=== PATIENT | female | born 1935 | race Caucasian/White ===

== ENCOUNTER 2020-08-14 13:24 | Observation (INO) | payer MEDICARE ==
[2020-08-14] MEDS ORDERED: fentaNYL (PF) 50 MCG/ML 2 ML AMP IV PRN (13:50)
[2020-08-14] MEDS ORDERED: LIDOCAINE 1% (10MG/ML) FOR IV START INTRADERMA PRN (13:50)
[2020-08-14] MEDS ORDERED: ONDANSETRON 4 MG/2 ML VIAL IVP PRN ×2 (13:50→15:31)
[2020-08-14] MEDS: LACTATED RINGERS 1,000 ML IV SCH (13:56)
[2020-08-14 14:04] LABS: Glucose,Whole Blood 98 mg/dL (75-99)
[2020-08-14] MEDS ORDERED: HYDROmorphone 0.2 MG/1 ML SYRINGE IVP PRN (15:31)
[2020-08-14] MEDS ORDERED: HYDROmorphone 0.5 MG/0.5 ML SYRINGE IVP PRN (15:31)
[2020-08-14] MEDS ORDERED: traMADol 50 MG TAB PO PRN (15:34)
[2020-08-14] MEDS ORDERED: PROPOFOL 10 MG/ML 20 ML VIAL IV ONE (15:50)
[2020-08-14] MEDS ORDERED: SUCCINYLCHOLINE CHLORIDE 100 MG/5 ML SYR IV ONE (15:50)
[2020-08-14] MEDS ORDERED: fentaNYL (PF) 50 MCG/ML 2 ML AMP ONE (15:50)
[2020-08-14] MEDS ORDERED: LIDOCAINE 1% INJ 10MG/ML (20 ML MDV) ONE (15:50)
--- NOTE | 2020-08-14 16:30 | P.OP ---
Date of Procedure: 08/14/20 Preoperative Diagnosis: Wound dehiscence with exposed hardware status post ORIF right olecranon Postoperative Diagnosis: Wound dehiscence with exposed hardware status post ORIF right olecranon Procedure(s) Performed: 1. Removal hardware right olecranon 2. Irrigation debridement wound dehiscence right elbow 3. Delayed primary closure right elbow Anesthesia: PAMELA Surgeon: Shailesh Delgado Film Crew Member #1: Kayleigh Monroy Estimated Blood Loss (ml): 10 Pathology: other (Cultures 2) Condition: stable Disposition: PACU Indications for Procedure: This is an 85-year-old female that had an open reduction internal fixation of her right olecranon proximally 10 days ago. She presented for a postoperative check was found to have an open area at the tip of her olecranon with exposed hardware. Her surgery was delayed secondary to her poor skin quality. After discussing the surgical nonsurgical treatment options with her and her family at length, I recommended removal of hardware with irrigation debridement and delayed primary closure. informed consent was obtained. Operative Findings: The operative findings are consistent with exposed hardware of the right olecranon status post open reduction and internal fixation Description of Procedure: Patient was seen in the preoperative area, the consent was reviewed, and the operative site was marked with a skin marker. Patient was then brought to the operating room and given a general anesthetic by the anesthesia department. 2 g of Ancef were given intravenously. Tourniquet was placed on the right upper arm the right upper extremities prepped and draped in usual sterile fashion. The wound was then inspected and the olecranon plate was readily visible through the wound. There was a moderate to large amount purulent discharge from the wound. Cultures were obtained 2. The prior surgical incision was healed well and the sutures were removed from that. Through the dehisced wound and a small portion of the prior incision which was opened sharply, the plate and screws were easily removed with appropriate screwdriver. There area was then irrigated and closed with 2-0 Vicryl suture. Sterile dressing was applied, patient was placed in a posterior splint, and transferred recovery room stable condition. Asst. Kayleigh Monroy was required due to complexity of surgery the need for skilled pediatric dental assistant.
[2020-08-14] MEDS: HYDROmorphone 0.5 MG/0.5 ML SYRINGE IVP PRN ×5 (17:05→20:04)
[2020-08-14] MEDS ORDERED: LACTATED RINGERS 1,000 ML IV ONE (17:21)
[2020-08-14] MEDS: traMADol 50 MG TAB PO PRN (20:03)
[2020-08-14] MEDS: SODIUM CHLORIDE 0.9% 1,000 ML IV SCH (20:11)
[2020-08-14] MEDS: SENNOSIDES-DOCUSATE SODIUM 1 EACH TAB PO PRN (20:12)
[2020-08-14] MEDS ORDERED: ZOLPIDEM 5 MG TAB PO ONE (20:18)
[2020-08-15] MEDS: HYDROmorphone 0.5 MG/0.5 ML SYRINGE IVP PRN ×3 (00:25→12:38)
[2020-08-15] MEDS: traMADol 50 MG TAB PO PRN ×3 (04:38→20:07)
[2020-08-15] MEDS: RIVAROXABAN 15 MG TAB PO SCH (08:52)
[2020-08-15] MEDS: SODIUM CHLORIDE 0.9% 1,000 ML IV SCH (08:53)
[2020-08-15] MEDS: LACTATED RINGERS 1,000 ML IV SCH (08:59)
[2020-08-15 12:06] LABS: Basophils # (A) 0.03 X 10*3/uL (0.00-0.10); Basophils % (A) 0.3 %; Eosinophils # (A) 0.05 X 10*3/uL (0.04-0.35); Eosinophils % (A) 0.6 %; HCT 28.9 % (37.2-46.3); Lymphocytes # (A) 0.85 X 10*3/uL (0.90-5.00); Lymphocytes % (A) 9.5 %; MCH 31.3 pg (27.0-32.0); MCHC 31.1 g/dL (32.0-37.0); MCV 100.3 fL (80.0-97.0); Mean Platelet Volume 11.2 fL (9.5-12.2); Monocytes # (A) 0.65 X 10*3/uL (0.20-1.00); Monocytes % (A) 7.2 %; Neutrophils # (A) 7.21 X 10*3/uL (1.80-7.70); Neutrophils % (A) 80.3 %; Platelet Count 198 X 10*3/uL (140-440); RBC 2.88 X 10*6/uL (4.10-5.20); RDW 17.2 % (11.5-14.5); WBC 8.98 X 10*3/uL (4.50-10.00)
[2020-08-15] MEDS ORDERED: HYDROcodone/APAP 5-325MG 1 EACH TAB PO PRN (12:37)
--- NOTE | 2020-08-15 12:45 | P.PN ---
Subjective Progress Note Date: 08/15/20 Principal diagnosis: Status post hardware removal right elbow This is a 85 year-old female post right elbow hardware removal. This is post-op day 1. The patient was evaluated at the bedside today. The patient denies nausea, vomiting, abdominal pain, shortness of breath, and chest pain this morning. She states her pain is only moderately controlled at this time. The patient has been up to the bathroom with assistance. Objective - Vital Signs Vital signs: Vital Signs Temp 98.2 F 08/15/20 07:52 Pulse 69 08/15/20 07:52 Resp 20 08/15/20 08:45 BP 105/60 08/15/20 07:52 Pulse Ox 92 L 08/15/20 07:52 Intake & Output 08/14/20 08/15/20 08/15/20 18:59 06:59 18:59 Intake Total 1550 Output Total 5 Balance 1545 Weight 51.1 kg Intake: IV 1550 Output: Estimated Blood Loss 5 Other: Voiding Method Toilet Toilet # Voids 2 - Exam The patient does not appear in acute distress. Alert and orientated x3. Splint and dressing is clean dry and intact. Good hand motion without difficulty. Sensation and circulatory status is intact. - Labs CBC & Chem 7: 08/15/20 06:33 Labs: Abnormal Lab Results - Last 24 Hours (Table) 08/15/20 Range/Units 06:33 RBC 2.88 L (4.10-5.20) X 10*6/uL Hgb 9.0 L (12.0-15.0) g/dL Hct 28.9 L (37.2-46.3) % MCV 100.3 H (80.0-97.0) fL MCHC 31.1 L (32.0-37.0) g/dL RDW 17.2 H (11.5-14.5) % Absolute Nucleated RBC 0.02 H (0.00-0.00) X 10*3/uL Immature Gran # 0.19 H (0.00-0.04) X 10*3/uL Lymphocytes # 0.85 L (0.90-5.00) X 10*3/uL NRBC/100 WBC Diff 0.2 H (0.0-0.0) /100 WBCS Microbiology - Last 24 Hours (Table) 08/14/20 16:29 Gram Stain - Preliminary Elbow - Right Wound Culture - Preliminary 08/14/20 16:29 Gram Stain - Preliminary Elbow - Right Wound Culture - Preliminary 08/14/20 16:29 Anaerobic Culture - Preliminary Elbow - Right 08/14/20 16:29 Anaerobic Culture - Preliminary Elbow - Right Assessment and Plan (1) History of elbow surgery Current Visit: Yes Status: Acute Code(s): Z98.890 - OTHER SPECIFIED POSTPROCEDURAL STATES SNOMED Code(s): 628983989 (2) Hypertension Current Visit: Yes Status: Acute Code(s): I10 - ESSENTIAL (PRIMARY) HYPERTENSION SNOMED Code(s): 38981373 (3) Anxiety Current Visit: Yes Status: Acute Code(s): F41.9 - ANXIETY DISORDER, UNSPECIFIED SNOMED Code(s): 36577036 Plan: 1. Continue pain control, may use Ultram or [place] 2. Continue in splint and sling at this time. Encouraged finger motion. 3. Continue ambulation 4. Anticipate discharge home tomorrow.
[2020-08-15] MEDS: clonazePAM 0.5 MG TAB PO SCH ×2 (12:47→20:07)
--- NOTE | 2020-08-15 15:29 | P.CONS ---
History of Present Illness - Reason for Consult Consult date: 08/15/20 Medical management - Chief Complaint Removal of right olecranon hardware - History of Present Illness Patient is a 85-year-old female with a known history of hypertension, hyperlipidemia, paroxysmal atrial fibrillation on anticoagulation with xarelto, history of right shoulder surgery and pacemaker placement was admitted to the hospital due to wound lesions with exposure hardware status post ORIF right. Patient states that she fell initially about 2 weeks ago and seen by her PCP. X-ray showed a right arm fracture. Patient had ORIF right only cranial about a week ago. Patient was admitted to the hospital due to wound lesions. She underwent Removal of right olecranon hardware and debridement of wound dehiscence right elbow. Currently patient is complaining of right arm pain but improved medications. Laboratory data showed WBC 8.98, hemoglobin 9.0 and platelets 198 and MCV 100.3 Review of Systems Constitutional: Patient denies any fever or chills . No generalized weakness or weight loss. Abdomen: Patient denied nausea vomiting and diarrhea and abdominal pain. Cardiovascular: Patient denies any chest pain or short of breath no palpitations. Respiratory: patient denied any cough is from production. No shortness of breath Neurologic: Patient denied any numbness or tingling headache. Musculoskeletal: Patient denies any complaints of joint swelling or deformity. Right elbow pain. Skin: Negative Psychiatric: Negative Endocrine: No heat or cold intolerance. No recent weight gain. Genitourinary: No dysuria or hematuria. All other 14 point ROS negative except the above Past Medical History Past Medical History: Atrial Fibrillation, Hyperlipidemia, Hypertension History of Any Multi-Drug Resistant Organisms: C-DIFF Year Discovered:: CDIFF OVER A YEAR AGO MDRO Source:: STOOL Additional Past Surgical History / Comment(s): RIGHT SHOULDER, PACEMAKER Past Anesthesia/Blood Transfusion Reactions: No Reported Reaction Smoking Status: Never smoker Medications and Allergies Home Medications Medication Instructions Recorded Confirmed Type Enalapril [Vasotec] 20 mg PO DAILY 08/14/20 08/14/20 History Rivaroxaban [Xarelto] 15 mg PO DAILY 08/14/20 08/14/20 History Simvastatin 10 mg PO ONCE 08/14/20 08/14/20 History Zolpidem Tartrate [Ambien] 10 mg PO HS PRN 08/14/20 08/14/20 History buPROPion HCL [buPROPion HCL Xl] 150 mg PO DAILY 08/14/20 08/14/20 History clonazePAM [KlonoPIN] 0.5 mg PO BID 08/14/20 08/14/20 History predniSONE 10 mg PO DAILY 08/14/20 08/14/20 History traMADol HCL 50 mg PO ONCE PRN 08/14/20 08/14/20 History Allergies Allergy/AdvReac Type Severity Reaction Status Date / Time No Known Allergies Allergy Verified 08/14/20 13:49 Physical Exam Vitals: Vital Signs Temp Pulse Pulse Resp BP Pulse Ox 08/15/20 08:45 20 08/15/20 07:52 98.2 F 69 20 105/60 92 L 08/15/20 02:42 98.4 F 71 16 95/53 91 L 08/14/20 20:00 16 08/14/20 19:53 98.1 F 74 16 110/57 96 08/14/20 18:38 98.0 F 75 18 110/57 93 L 08/14/20 18:00 77 16 108/53 100 08/14/20 17:45 69 16 103/56 100 08/14/20 17:30 69 18 117/54 100 08/14/20 17:15 70 16 112/55 99 08/14/20 17:00 73 16 116/55 100 08/14/20 16:45 99 F 78 16 127/57 99 08/14/20 13:48 97.3 F L 82 17 136/60 97 Intake and Output 08/14/20 08/15/20 08/15/20 22:59 06:59 14:59 Intake Total 1450 Output Total 5 Balance 1445 Intake: IV 1450 Output: Estimated Blood Loss 5 Other: Voiding Method Toilet Toilet # Voids 2 Weight 51.1 kg PHYSICAL EXAMINATION: Patient is lying in the bed comfortably, no acute distress, awake alert and be ented.. HEENT: Normocephalic. Neck is supple. Pupils reactive. Nostrils clear. Oral cavity is moist. Neck reveals no JVD, carotid bruits, or thyromegaly. CHEST EXAMINATION: Trachea is central. Symmetrical expansion. Lung [place] clear to auscultation and percussion. CARDIAC: Normal S1, S2 with no gallops. No murmurs ABDOMEN: Soft. Bowel sounds normal. No organomegaly. No abdominal bruits. Extremities: reveal no edema. No clubbing or cyanosis Neurologically awake, alert, oriented x3 with well-coordinated movements. No focal deficits noted Skin: No rash or skin lesions. Psychiatric: Coperative. Nonsuicidal Musculoskeletal: No joint swelling or deformity. Right arm splint is dry and i ntact.. Results CBC & Chem 7: 08/15/20 06:33 Labs: Microbiology - Last 24 Hours (Table) 08/14/20 16:29 Gram Stain - Preliminary Elbow - Right Wound Culture - Preliminary 08/14/20 16:29 Gram Stain - Preliminary Elbow - Right Wound Culture - Preliminary 08/14/20 16:29 Anaerobic Culture - Preliminary Elbow - Right 08/14/20 16:29 Anaerobic Culture - Preliminary Elbow - Right Assessment and Plan Assessment: Status post removal of right olecranon hardware and debridement of wound lesions. Hypertension Paroxysmal atrial fibrillation on and atrial fibrillation with xarelto Macrocytic anemia. Rule out B12 and folate deficiency. DVT prophylaxis recurrent and xarelto next Plan: Patient will be continued on pain management, bowel regimen, incentive spirometry continue with DVT prophylaxis. Encourage ambulation. Follow-up H&H level. We will continue to follow and further recommendations based on the clinical course. thank you for your consult. Time with Patient: Greater than 30
[2020-08-15] MEDS: SENNOSIDES-DOCUSATE SODIUM 1 EACH TAB PO PRN (20:10)
[2020-08-15] MEDS ORDERED: ZOLPIDEM 10 MG TAB PO PRN (20:21)
[2020-08-15] MEDS ORDERED: BENZONATATE 100 MG CAP PO PRN (20:22)
[2020-08-16] MEDS: SODIUM CHLORIDE 0.9% 1,000 ML IV SCH (00:28)
[2020-08-16] MEDS: clonazePAM 0.5 MG TAB PO SCH (07:30)
[2020-08-16] MEDS: RIVAROXABAN 15 MG TAB PO SCH (07:31)
[2020-08-16] MEDS: traMADol 50 MG TAB PO PRN ×2 (07:33→13:56)
[2020-08-16 07:34] VITALS: BP 135/72; PULSE 96; RESP 20; TEMP 98.1
[2020-08-16] MEDS ORDERED: buPROPion XL 150 MG TAB.ER.24H PO SCH (09:00)
[2020-08-16 11:35] LABS: Basophils # (A) 0.03 X 10*3/uL (0.00-0.10); Basophils % (A) 0.4 %; Eosinophils # (A) 0.07 X 10*3/uL (0.04-0.35); Eosinophils % (A) 0.8 %; HCT 27.1 % (37.2-46.3); HGB 8.4 g/dL (12.0-15.0); Lymphocytes # (A) 0.74 X 10*3/uL (0.90-5.00); Lymphocytes % (A) 8.9 %; MCH 30.2 pg (27.0-32.0); MCV 97.5 fL (80.0-97.0); Mean Platelet Volume 10.9 fL (9.5-12.2); Monocytes % (A) 7.2 %; Neutrophils # (A) 6.72 X 10*3/uL (1.80-7.70); Neutrophils % (A) 81.3 %; Platelet Count 185 X 10*3/uL (140-440); RBC 2.78 X 10*6/uL (4.10-5.20); RDW 16.7 % (11.5-14.5); WBC 8.28 X 10*3/uL (4.50-10.00)
--- NOTE | 2020-08-16 11:48 | P.DS ---
Providers Date of admission: 08/15/20 10:08 Expected date of discharge: 08/16/20 Attending physician: Shailesh Delgado Consults: 08/14/20 17:36 Consult Physician Routine Consulting Provider: Charleen Lowry Consult Reason/Comments: medical management Do you want consulting provider notified?: Yes Primary care physician: Dee Begum PAC - Discharge Diagnosis(es) (1) History of elbow surgery Current Visit: Yes Status: Acute (2) Wound dehiscence Current Visit: Yes Status: Acute Hospital Course: This is an 85 year old female who is admitted for wound dehiscence of the right elbow. Patient underwent a recent ORIF of the right olecranon and upon follow up was found to have an open wound with exposed hardware. Treatment options were discussed and patient consented to proceed with hardware removal and irrigation and debridement of the right elbow. Patient is admitted to [facility] on 08/14/2020 for hardware removal right olecranon, irrigation and debridement of wound dehiscence right elbow and delayed primary closure of the right elbow. Patient has been receiving IV antibiotic treatment during this admission with improvement in her symptoms. Labs and vital signs are stable on day of discharge. Preliminary cultures are positive for staph aureus. On day of discharge patient's splint is removed revealing a healing incision. There is minimal serosanguineous drainage present. Mild swelling and ecchymosis present. The right upper extremity is warm and well perfused. Sensation intact. Neurovascular status and circulatory status are intact. Patient is in good condition for discharge home. Plan - Discharge Summary Discharge Rx Participant: Yes New Discharge Prescriptions: New Sennosides [Senokot] 2 tab PO DAILY PRN #60 tablet PRN Reason: Constipation Cephalexin [Keflex] 500 mg PO Q6HR 10 Days #40 cap traMADol HCl [Ultram] 1 - 2 tab PO Q6H PRN #32 tab PRN Reason: Pain No Action clonazePAM [KlonoPIN] 0.5 mg PO BID Enalapril [Vasotec] 20 mg PO DAILY Rivaroxaban [Xarelto] 15 mg PO DAILY Simvastatin 10 mg PO ONCE predniSONE 10 mg PO DAILY Zolpidem Tartrate [Ambien] 10 mg PO HS PRN PRN Reason: Insomnia buPROPion HCL [buPROPion HCL Xl] 150 mg PO DAILY traMADol HCL 50 mg PO ONCE PRN PRN Reason: Pain Discharge Medication List Enalapril [Vasotec] 20 mg PO DAILY 08/14/20 [History] Rivaroxaban [Xarelto] 15 mg PO DAILY 08/14/20 [History] Simvastatin 10 mg PO ONCE 08/14/20 [History] Zolpidem Tartrate [Ambien] 10 mg PO HS PRN 08/14/20 [History] buPROPion HCL [buPROPion HCL Xl] 150 mg PO DAILY 08/14/20 [History] clonazePAM [KlonoPIN] 0.5 mg PO BID 08/14/20 [History] predniSONE 10 mg PO DAILY 08/14/20 [History] traMADol HCL 50 mg PO ONCE PRN 08/14/20 [History] Cephalexin [Keflex] 500 mg PO Q6HR 10 Days #40 cap 08/16/20 [Rx] Sennosides [Senokot] 2 tab PO DAILY PRN #60 tablet 08/16/20 [Rx] traMADol HCl [Ultram] 1 - 2 tab PO Q6H PRN #32 tab 08/16/20 [Rx] Follow up Appointment(s)/Referral(s): Nursing,[facility] [NON-STAFF] - Shailesh Delgado DO [Doctor of Osteopathic Medicine] - 08/17/20 Activity/Diet/Wound Care/Special Instructions: Maintain splint. Sling as needed for comfort. Do not get splint wet. Rest and elevate for swelling. Please take medications as prescribed. Please follow up with [facility] on 08/17/2020 and call with any questions or concerns, . Discharge Disposition: HOME SELF-CARE
[2020-08-16 14:04] LABS: African American GFR (CKD) 77.9 (60.0-200.0); Anion Gap 9.3 mmol/L (4.00-12.00); Calcium 8.1 mg/dL (8.7-10.3); Carbon Dioxide 19.7 mmol/L (21.6-31.8); Non-African American GFR(CKD) 67.2 (60.0-200.0); Potassium 4.7 mmol/L (3.5-5.5)
== END 2020-08-16 15:15 | disposition home or self-care (01) ==
LOC: OR 13:24 → 4SSUR 16:39 → OR 08-15 10:08 → 4SSUR 08-15 10:08
PROVIDERS: ADMIT Orthopaedic Surgery; ATTEND Orthopaedic Surgery
DX: T81.32XA Disruption of internal operation (surgical) wound, not elsewhere classified, initial encounter (principal); S52.021G Displaced fracture of olecranon process without intraarticular extension of right ulna, subsequent encounter for closed fracture with delayed healing; I10 Essential (primary) hypertension; E78.5 Hyperlipidemia, unspecified; F41.9 Anxiety disorder, unspecified; A49.01 Methicillin susceptible Staphylococcus aureus infection, unspecified site; D53.9 Nutritional anemia, unspecified; I48.0 Paroxysmal atrial fibrillation; F32.9 Major depressive disorder, single episode, unspecified; R26.81 Unsteadiness on feet; Z20.822 Contact with and (suspected) exposure to COVID-19; Z79.01 Long term (current) use of anticoagulants; Z79.899 Other long term (current) drug therapy; W01.0XXD Fall on same level from slipping, tripping and stumbling without subsequent striking against object, subsequent encounter; Z95.0 Presence of cardiac pacemaker; Z16.24 Resistance to multiple antibiotics; Z96.611 Presence of right artificial shoulder joint; Z98.890 Other specified postprocedural states; Z97.3 Presence of spectacles and contact lenses; Z82.49 Family history of ischemic heart disease and other diseases of the circulatory system
CPT/HCPCS: 20680; 13160; 82747; 80048; 84443; 82607; 85025 ×2; 87070; 87205; 87075; 87077; 87186; 87635; G0378 ×2; J0690 ×2; J2405; J2001; J3010; J0330; J2704; J1170 ×2

== ENCOUNTER → 2020-12-06 | Outpatient (CLI) | payer MEDICARE ==
--- NOTE | 2020-12-06 14:02 | NM ---
EXAMINATION TYPE: NM bone 3 phase DATE OF EXAM: 12/06/2020 COMPARISON: NONE HISTORY: Pain Triple phase bone scintigraphy was performed following the injection of 21 mCi Tc 99m MDP. Immediate images and 5 hours post injection images acquired. FINDINGS: Abnormal uptake is seen throughout the thoracic spine with a linear area of abnormal uptake at the th oracolumbar junction which could been the basis of a compression fracture. There appears to be intense abnormal uptake involving the right elbow. Mild degree uptake involving t he lumbar spine. Photopenic defect right shoulder likely postoperative. Mild intensity uptake involving the shoulders appears postoperative. Cannot exclude a photopenic defe ct along the lateral margin of the left chest x-ray correlation recommended assess for possible pacem sofai. Other etiologies not excluded. IMPRESSION: 1. Intense abnormal uptake right elbow correlate for osteomyelitis or recent fracture. 2. Findings suspicious for compression fracture of indeterminate age thoracolumbar junction x-ray cor relation recommended.
== END | disposition home or self-care (01) ==
LOC: RADNMMAIN 07:28
PROVIDERS: ATTEND Nurse Practitioner Family
DX: L98.492 Non-pressure chronic ulcer of skin of other sites with fat layer exposed (principal); T81.30XA Disruption of wound, unspecified, initial encounter
CPT/HCPCS: 78315; A9503

== ENCOUNTER → 2020-12-11 | Outpatient (CLI) | payer MEDICARE ==
--- NOTE | 2020-12-11 15:31 | XR ---
Right elbow HISTORY: M79.604 M54.9 3 views of the right elbow correlated to bone scan dated 12/06/2020 Anterior fat pad sign suggests joint effusion. There is a fragmented appearance at the expected inser tion of the triceps tendon, sclerotic appearance of the olecranon and irregular shape are noted, diff icult to exclude an underlying fracture or infection. No evident dislocation. Views are nonstandard. IMPRESSION: Correlate for osteomyelitis, prior trauma, fracture, alternate imaging may be of benefit
== END | disposition home or self-care (01) ==
LOC: RADXRMAIN 14:56
PROVIDERS: ATTEND Nurse Practitioner Family
DX: L98.492 Non-pressure chronic ulcer of skin of other sites with fat layer exposed (principal); T81.30XA Disruption of wound, unspecified, initial encounter